=== PATIENT | female | born 1960 | race Caucasian/White ===

== ENCOUNTER 2016-06-05 06:16 | Emergency (ER) | payer OTHER ==
--- NOTE | 2016-06-05 06:50 | ERNOTE ---
Dizziness ER Record Presenting Symptoms: dizziness Source: patient, family Exam Limitations: no limitations Immunizations: IMMUNIZATION HX Immunizations Up to Date Yes History of Influenza Vaccine No Hx Pneumococcal Vaccination No Allergies/Adverse Reactions: Allergies Allergy/AdvReac Type Severity Reaction Status Date / Time No Known Allergies Allergy Verified 06/05/16 06:35 Home Medications: HOME MEDICATIONS Acarbose [Precose] 50 mg PO TID 07/06/15 [Last Taken Unknown] Aspirin [Jimena Chewable] 81 mg PO DAILY 07/06/15 [Last Taken Unknown] Chlorthalidone [Hygroton] 12.5 mg PO DAILY 07/06/15 [Last Taken Unknown] Cholecalciferol (Vitamin D3) [Vitamin D] 50,000 unit PO Q7D 07/06/15 [Last Taken Unknown] Fluticasone Propionate [Flonase] 1 spray NS DAILY 07/06/15 [Last Taken Unknown] Glipizide 10 mg PO BID 07/06/15 [Last Taken Unknown] Lisinopril [Zestril] 40 mg PO DAILY 07/06/15 [Last Taken Unknown] Propranolol HCl [Inderal] 40 mg PO TID 07/06/15 [Last Taken Unknown] Fenofibrate [Lofibra] 160 mg PO DAILY 06/05/16 [Last Taken Unknown] Lactobacillus Rhamnosus GG [Culturelle] 1 tab PO DAILY 06/05/16 [Last Taken Unknown] Meclizine HCl [Antivert] 12.5 mg PO Q6H PRN #14 tab 06/05/16 [Last Taken Unknown ] Metronidazole [Metrocream] 45 gm TP 06/05/16 [Last Taken Unknown] Saxagliptin HCl [Onglyza] 5 mg PO DAILY 06/05/16 [Last Taken Unknown] - History of Present Illness Narrative: Pt awoke around 2:30 with dizziness described as off balance. She took her medication and vomited. She went to work and they took her BP and blood sugar and found both to be high and suggested she come to the ED. Timing and Duration: cannot confirm onset Noted on awakening:: Yes Severity: max: moderate Severity: currently: mild Associated Symptoms: Present: vomiting. Absent: hearing loss, ringing/roaring in ear, ear pain, headache, weakness, numbness, sense of confusion Sense of movement: Present: vague Decreased ability to stand/walk:: Present: off balance Usually:: Present: walks w/o assistance Modifying Factors - (Improves): Reports: nothing Modifying Factors - (Worsens): Reports: nothing Review of Systems - Review of Systems Constitutional: Absent: recent illness, fever, chills EYE: Absent: double vision, vision changes ENT: Absent: ear pain, nose congestion, sore throat Respiratory: Absent: shortness of breath, cough Cardiology: Absent: palpitations Gastrointestinal/Abdominal: Present: See HPI, vomiting. Absent: abdominal pain Genitourinary: Absent: frequency, dysuria Musculoskeletal: Present: no symptoms reported Skin: Present: no symptoms reported Neurological: Absent: weakness, numbness Endocrine: Present: other - increased BS Hematologic/Lymphatic: Present: no symptoms reported Psych: Present: no symptoms reported - Patient's Past Medical History Patient History - Medical: Diabetes Type 2 Patient History - Cardiac/Respiratory: Hypertension Patient History - Cancer: No Hx of Cancer Patient History - Surgical Procedures: Appendectomy, , Tubal Ligation, Other Patient History - Other: None - Social History Living Situations: home Abuse History: No History of abuse Psych History: No pertinent hx Smoking Status: Never smoker Have you smoked in the past 12 months: No Alcohol Use: none Drug Use: none - Immunizations Immunizations Up to Date: Yes Hx Pneumococcal Vaccination: No History of Influenza Vaccine: No Physical Exam - Physical Exam General Appearance: Present: wd/wn, alert, no apparent distress Eye Exam: Normal inspection: bilateral, PERRL: bilateral, EOMI: bilateral Ears, Nose, Throat: Present: normal ENT inspection, hearing grossly normal, normal pharynx Neck: Present: normal inspection, nontender Respiratory: Present: no respiratory distress, normal breath sounds, chest nontender, lungs clear Cardiovascular/Chest: Present: regular rate, rhythm, no murmur, normal peripheral pulses Extremity Exam: Present: normal inspection, no edema Neurological Exam: Present: alert, oriented, normal mood/affect, no motor/ sensory deficits Skin Exam: Present: normal color, warm/dry Lymphatic Exam: Present: no adenopathy ED Progress - Results and Orders Patient's Lab Results:: I have reviewed the patient's lab results. Results and Orders: Laboratory Tests 06/05/16 06/05/16 06/05/16 06:44 06:45 06:45 WBC 6.5 Hgb 14.6 Hct 43.3 Plt Count 206 Sodium 138 Potassium 4.2 D Chloride 103 Carbon Dioxide 26.8 Anion Gap 12.4 BUN 17 Creatinine 0.78 BUN/Creatinine Ratio 21.8 H Random Glucose 289 H Calcium 8.4 Total Bilirubin 0.6 AST 13 ALT 23 Alkaline Phosphatase 87 Total Protein 7.5 Albumin 3.6 Urine Color Yellow Urine Appearance Clear Urine pH 5.0 Ur Specific [place] 1.025 Urine Protein Negative Urine Glucose (UA) >=1000 H Urine Ketones Negative Urine Blood 25 H Urine Nitrate Negative Urine Bilirubin Negative Urine Urobilinogen Normal Ur Leukocyte Esterase Negative Urine RBC 0-5 Urine WBC None seen Ur Epithelial Cells 0-5 Urine Bacteria None seen Urine Culture Comments No culture indicated - Vital Signs Patient's Vital Signs:: I have reviewed the patient's vital signs. Vital Signs: Vital Signs 06/05/16 06/05/16 06:23 06:29 Temperature 35.8 C L Pulse Rate 60 66 Respiratory 14 Rate Blood Pressure 135/78 141/91 O2 Sat by Pulse 100 Oximetry - Progress/Reassessment Chief Complaint: Dizziness Progress:: Improved Departure Clinical Impression: Vertigo - Departure Disposition: Home Follow Up Needed Condition: Good Instructions: Vertigo, [id number] Additional Instructions: relax today, drink plenty of water. See Dr. Patrick if not improving Referrals: Romero Chang MD [Primary Care Provider] - Prescriptions: Meclizine HCl [Antivert] 12.5 mg PO Q6H PRN #14 tab PRN Reason: DIZZINESS
[2016-06-05 06:55] LABS: Hematocrit 43.3 % (37.0-47.0); Hemoglobin 14.6 gm/dL (12.5-16.0); Mean Cell Volume 85.2 fl (78-100); Mean Corpuscular Hemoglobin 28.7 pg (27-31); Mean Corpuscular Hgb Conc 33.7 g/dl (32-36); Neutrophil # 5.3 K/mm3 (1.3-6.0); Neutrophil % 81.5 % (42-75.0); Platelet Count 206 K/mm3 (150-450); Red Blood Count 5.08 M/mm3 (4.2-5.4); Red Cell Distribution Width 12.4 % (11.5-14.0); White Blood Count 6.5 K/mm3 (4.0-10.5)
[2016-06-05 07:01] LABS: Urine Bilirubin Negative (NEGATIVE); Urine Blood 25 /ul (NEGATIVE); Urine Ketone Negative (NEGATIVE); Urine Nitrite Negative (NEGATIVE); Urine Protein Negative (NEGATIVE); Urine Specific Gravity 1.025 SP.GR. (1.005-1.010); Urine Urobilinogen Normal (NORMAL)
[2016-06-05 07:08] LABS: Albumin * 3.6 gm/dl (3.4-5.0); Anion Gap 12.4 mmol/L (6.8-13.8); BUN/Creatinine Ratio 21.8 (9.0-21.6); Bilirubin, Total 0.6 mg/dL (0.0-1.1); Ca. Corrected For Albumin 8.4 mg/dL (8.4-10.2); Calcium * 8.4 mg/dL (7.9-10.9); Carbon Dioxide 26.8 mmol/L (24-32.6); Potassium 4.2 mmol/L (3.4-4.6); Total Protein 7.5 gm/dL (6.2-8.2)
[2016-06-05 07:12] LABS: Urine Appearance Clear; Urine Bacteria None Seen; Urine Color Yellow; Urine RBC 0-5 /hpf (0-5); Urine WBC None Seen /hpf (0-5)
--- OUTSIDE RECORDS SUMMARY | 2016-06-05 07:26 | XMS REPORT | Continuity of Care Document ---
:1960 Author Organization [facility] ([facility]) Address [address] [place] [address] Phone [phone] Care Team Providers Name Role Phone Romero Patrick Primary Care Provider [phone] Source Comments This disclosure is being made pursuant to the Care Everywhere program, applicable federal and state laws, and may not contain all informaitonavailable regarding this patient.[facility] ([facility]) Active Allergies and Adverse Reactions No Known Allergies Current Medications Prescription Sig. Disp. Refills Start Date End Date Status cholecalciferol 50,000 Take 1 capsule by Active unit capsule mouth every week Saturdays. saxagliptin (ONGLYZA) 5 Take 5 mg by mouth Active mg tablet daily. lisinopril 40 mg tablet Take 40 mg by Active mouth daily. chlorthalidone 25 mg Take 12.5 mg by Active tablet mouth daily . acarbose 50 mg tablet Take 50 mg by Active mouth 3 times daily with meals. fenofibrate 160 mg tablet Take 160 mg by Active mouth daily. propranolol 20 mg tablet Take 40 mg by Active mouth 3 times daily. glipiZIDE 10 mg tablet Take 20 mg by Active mouth 2 times daily with meals. metFORMIN 500 mg tablet Take 1,000 mg by Active mouth 2 times daily with meals. sodium hypochlorite Apply topically 2 473 mL 2 07/19/2015 Active (DAKIN'S) 0.0125 % times daily. topical solution Active Problems Problem Noted Date Diabetes 07/07/2015 Resolved Problems Problem Noted Date Resolved Date Incarcerated ventral hernia 07/07/2015 07/13/2015 Overview: With bowel needing resection 07/07/15 Incarcerated hernia 07/07/2015 07/13/2015 Social History Tobacco Use Types Packs/Day Years Used Date Never Smoker Smokeless Tobacco: Never Used Alcohol Use Drinks/Week oz/Week Comments No Last Filed Vital Signs Vital Sign Reading Time Taken Blood Pressure 129/77 09/27/2015 10:25 AM CDT Pulse 62 09/27/2015 10:25 AM CDT Temperature 36.4 C (97.5 F) 09/27/2015 10:25 AM CDT Respiratory Rate 16 07/13/2015 8:35 AM CDT Height 1.549 m (5' 1") 09/27/2015 10:25 AM CDT Weight 71.45 kg (157 lb 8.3 oz) 09/27/2015 10:25 AM CDT Body Mass Index 29.78 09/27/2015 10:25 AM CDT Oxygen Saturation 91% 07/13/2015 8:35 AM CDT Plan of Care Health Maintenance Due Date Last Done Comments HCV Screening 1960 Hepatitis B Vaccine (1 of 3 - Primary Series) 1960 Tdap Vaccine 1973 DIABETIC: Cholesterol 1980 Diabetic: Hdl 1980 DIABETIC: Hemoglobin A1C 1980 Diabetic: Ldl 1980 DIABETIC: Microalbumin 1980 DIABETIC: Triglycerides 1980 MMR Vaccine 1980 Td Vaccine 1980 Pneumococcal Vaccine (1 of 1 - PPSV23) 1981 Cervical Cancer Screening 1992 Mammogram 2002 Colonoscopy 12/26/2012 DIABETIC: Foot Exam 07/07/2015 DIABETIC: Retinal Eye Exam 07/07/2015 Influenza Vaccine: Seasonal (#1) 11/19/2015 Results from Last 3 Months Not on file
[2016-06-05] MEDS ORDERED: MECLIZINE HCL 25 MG TABLET PO ONE (07:42)
[2016-06-05] MEDS ORDERED: MECLIZINE HCL 25 MG TABLET ONE (07:45)
[2016-06-05 07:57] VITALS: BP 130/77
== END 2016-06-05 07:50 | disposition home or self-care (01) ==
LOC: ER 06:16
DX: R42 Dizziness and giddiness (principal); E11.9 Type 2 diabetes mellitus without complications; I10 Essential (primary) hypertension